=== PATIENT | male | born 1970 | race Caucasian/White ===

== ENCOUNTER 2024-03-23 13:22 | Inpatient (IN) | payer OTHER ==
[2024-03-23 13:47] VITALS: BMI 27.2
[2024-03-23] MEDS ORDERED: LOPERAMIDE HCL 2 MG CAPSULE PO PRN (14:12)
[2024-03-23] MEDS ORDERED: DICYCLOMINE HCL 10 MG CAPSULE PO PRN (14:12)
[2024-03-23] MEDS ORDERED: ONDANSETRON *ODT* 4 MG TABLET SL PRN (14:12)
[2024-03-23] MEDS ORDERED: guaiFENesin 600 MG TABLET.ER (FP) PO PRN (14:12)
[2024-03-23] MEDS ORDERED: POLYETHYLENE GLYCOL (HEALTHYLAX) 3350 17 GM PACKET PO PRN (14:12)
[2024-03-23] MEDS ORDERED: MAGNESIUM HYDROX 2400MG/30ML ORAL SUSPENSION 30 ML CUP PO PRN (14:12)
[2024-03-23] MEDS ORDERED: ACETAMINOPHEN 325 MG TABLET (FP) PO PRN (14:12)
[2024-03-23] MEDS ORDERED: IBUPROFEN 400 MG TABLET (FP) PO PRN (14:12)
[2024-03-23] MEDS ORDERED: P-EPHED 60MG/TRIPROLIDI 2.5MG TABLET PO PRN (14:12)
[2024-03-23] MEDS ORDERED: IBUPROFEN 600 MG TABLET (FP) PO PRN (14:12)
[2024-03-23] MEDS ORDERED: BENZOCAINE/MENTHOL (CHLORASEPTIC ) LOZENGE MM PRN (14:12)
[2024-03-23] MEDS ORDERED: NALOXONE (NARCAN) HCL 4 MG/0.1 ML SPRAY NS PRN (14:12)
[2024-03-23] MEDS ORDERED: BISMUTH SUBSALICYLATE 262 MG/15 ML BTL PO PRN (14:12)
[2024-03-23] MEDS ORDERED: MAG HYDROX/AL HYDROX/SIMETH 30 ML UNIT-DOSE CUP PO PRN (14:12)
[2024-03-23] MEDS ORDERED: FLU VACCINE (FLULAVAL) PF 45 MCG/0.5 ML SYRINGE 2024-2025 IM ONE (16:30)
[2024-03-23] MEDS: ALBUTEROL SO4 HFA INHALER IH PRN (17:59)
[2024-03-23] MEDS: FLU VACCINE (FLULAVAL) PF 45 MCG/0.5 ML SYRINGE 2024-2025 IM ONE (18:01)
[2024-03-23] MEDS ORDERED: LORATADINE 10 MG TABLET PO PRN (18:34)
[2024-03-23] MEDS: MELATONIN 5 MG TABLETS PO SCH (21:47)
[2024-03-23] MEDS: GEMFIBROZIL 600 MG TABLET (FP) PO SCH (21:47)
[2024-03-23] MEDS: hydrOXYzine PAMOATE 25 MG CAPSULE (FP) PO PRN (21:47)
[2024-03-23] MEDS: THIAMINE 100 MG TABLET PO SCH (21:47)
[2024-03-23] MEDS: BENZONATATE 200 MG CAPSULE PO PRN (21:49)
[2024-03-24] MEDS: ALBUTEROL SO4 0.083% IH SOL 2.5 MG/3 ML VIAL.NEB. NEB PRN (08:55)
[2024-03-24 09:29] LABS: CHLORIDE 103 mmol/L (98-107); POTASSIUM 3.9 mmol/L (3.5-5.1); SODIUM 137 mmol/L (136-145)
[2024-03-24 09:32] LABS: GLUCOSE,RANDOM 126 mg/dL (74-106)
[2024-03-24 09:34] LABS: ALBUMIN 3.9 g/dl (3.4-5.0); ANION GAP 5 mmol/L (4-13); BLOOD UREA NITROGEN 15.9 mg/dL (7-18); CALCIUM 8.9 mg/dL (8.5-10.1); CO2 28 mmol/L (21-32); SGOT/AST 17 U/L (15-37); SGPT/ALT 28 U/L (13-61)
[2024-03-24 09:36] LABS: BILIRUBIN,TOTAL 0.5 mg/dL (0.2-1); TOT PROT 7.4 g/dl (6.4-8.2)
[2024-03-24 09:37] LABS: ALK PHOS 58 U/L (45-117)
[2024-03-24 09:44] LABS: HEMOGLOBIN 13.5 GM/dL (11.7-16.9); MCH 27.1 pg (25.7-33.7); MCHC 32.8 g/dl (32.0-35.9); MEAN CELL VOLUME 82.5 fl (80-96); PLATELET COUNT 251 10^3/uL (134-434); RBC 4.97 M/mm3 (4.00-5.60); RDW 15.3 % (11.9-15.9); WHITE BLOOD COUNT 8.1 K/mm3 (4.0-10.0)
[2024-03-24] MEDS: FAMOTIDINE 20 MG TABLET PO SCH (10:25)
[2024-03-24] MEDS: PRENATAL VITAMINS W/ FOLIC ACID TABLET (FP) PO SCH (10:25)
[2024-03-24] MEDS: NIFEdipine E.R. 30 MG TABLET PO SCH (10:27)
[2024-03-24] MEDS: SERTRALINE HCL 50 MG TABLET (FP) PO SCH (11:44)
[2024-03-24] MEDS: LOSARTAN POTASSIUM 25 MG TABLET PO SCH (14:55)
[2024-03-24] MEDS: FOLIC ACID 1 MG TABLET (FP) PO SCH (14:55)
[2024-03-24] MEDS: BUDESONIDE/FORMETEROL FUMARATE 80/4.5 mcg INHALER IH SCH (15:10)
[2024-03-24 21:55] VITALS: RESP 17
[2024-03-24] MEDS ORDERED: PATIENT'S OWN MEDICATION (NON-FORMULARY) (Mometasone/Formoterol [Dulera 100 Mcg-5 Mcg Inha IH SCH (22:00)
[2024-03-24] MEDS: METHOCARBAMOL 500 MG TABLET PO PRN (22:09)
[2024-03-24] MEDS: ATORVASTATIN CA 20 MG TABLET (FP) PO SCH (22:09)
[2024-03-24] MEDS: MONTELUKAST NA 10 MG TABLET PO SCH (22:09)
[2024-03-25 09:33] VITALS: BP 142/88; PULSE 76; TEMP 98.2
[2024-03-25] MEDS: NALOXONE (NYS OPIOID OVERDOSE PROGRAM) 4 MG/0.1 ML SPRAY NS PRN (11:28)
== END 2024-03-25 12:09 | disposition home or self-care (01) | DRG 774 ==
LOC: YASAS 13:22 → Y6N 15:19
PROVIDERS: ADMIT Allergy & Immunology; ATTEND Allergy & Immunology
PROC: HZ2ZZZZ Detoxification Services for Substance Abuse Treatment (ICD-10-PCS; principal; 2024-03-23)
DX: F10.20 Alcohol dependence, uncomplicated (principal); F14.20 Cocaine dependence, uncomplicated; F31.9 Bipolar disorder, unspecified; F43.10 Post-traumatic stress disorder, unspecified; E78.2 Mixed hyperlipidemia; I10 Essential (primary) hypertension; K21.9 Gastro-esophageal reflux disease without esophagitis; Z62.810 Personal history of physical and sexual abuse in childhood; Z63.8 Other specified problems related to primary support group; Z87.891 Personal history of nicotine dependence; Z56.0 Unemployment, unspecified; Z59.00 Homelessness unspecified
CPT/HCPCS: 36415; 80053; 80305; 80307; 85027; 86780; 90656; 93005; 93010; 94640; G0008